=== PATIENT | male | born 1970 | race Caucasian/White ===

== ENCOUNTER 2020-05-15 06:58 | Day surgery (SDC) | payer MEDICARE, MEDICAID ==
[2020-05-15] MEDS ORDERED: Glycopyrrolate 0.2 MG/ML 5 ML MDV IV ONE (06:59)
[2020-05-15] MEDS ORDERED: Succinylcholine 200 MG/10 ML MDV IV ONE (06:59)
[2020-05-15] MEDS ORDERED: Citric Acid/Sodium Citrate Solution 30 ML Cup PO ONE (06:59)
[2020-05-15] MEDS ORDERED: Midazolam 1 MG/ML 2 ML SDV IV ONE (06:59)
[2020-05-15] MEDS ORDERED: Propofol 200 MG/20 ML SDV IV ONE (06:59)
[2020-05-15] MEDS ORDERED: Albuterol 8 GM Inhaler INH ONE (06:59)
[2020-05-15] MEDS ORDERED: Dexmedetomidine 200 MCG/2 ML SDV IV ONE (06:59)
[2020-05-15] MEDS ORDERED: Acetaminophen 1,000 MG/100 ML Infusion Bottle Premix IV ONE (06:59)
[2020-05-15] MEDS ORDERED: Ketamine 500 mg/10 ML MDV IV ONE (06:59)
[2020-05-15] MEDS ORDERED: Lactated Ringers 1,000 ML IV ONE (06:59)
[2020-05-15] MEDS ORDERED: fentaNYL 100 MCG/2 ML SDV IV ONE (06:59)
[2020-05-15] MEDS ORDERED: Rocuronium 100 MG/10 ML MDV IV ONE (06:59)
[2020-05-15] MEDS ORDERED: Neostigmine Methylsulfate 10 MG/10 ML MDV IVPUSH ONE (06:59)
[2020-05-15] MEDS ORDERED: Lactated Ringers 1,000 ML IV SCH (07:00)
[2020-05-15] MEDS ORDERED: Sodium Chloride 0.9% 10 ML Syringe FLUSH PRN (07:00)
[2020-05-15] MEDS ORDERED: Bupivacaine 0.25% 30 ML SDV INJECT ONE (09:37)
--- NOTE | 2020-05-15 10:43 | PCM.OPNOTE ---
- General Post-Op/Procedure Note Date of Surgery/Procedure: 05/15/20 Operative Procedure(s): Lap Ventral Hernia repair with Mesh Findings: 3 hernia defects Pre Op Diagnosis: Recurrent Ventral Hernia Post-Op Diagnosis: Same Anesthesia Technique: General ET Tube Primary Surgeon: Marino Navarrete Anesthesia Provider: Franchesca Abrams Solution Analyst: Yan Mayfield in mLs: 5 Complications: None Condition: Good
[2020-05-15] MEDS ORDERED: Acetaminophen/HYDROcodone 325-5 MG Tab PO PRN (10:46)
[2020-05-15] MEDS ORDERED: Morphine 2 MG/ML Syringe IVPUSH PRN (10:46)
--- NOTE | 2020-05-15 13:02 | OR ---
DATE OF OPERATION: 05/15/2020 SURGEON: Marino Navarrete MD PREOPERATIVE DIAGNOSIS: Recurrent ventral hernia. POSTOPERATIVE DIAGNOSIS: Recurrent ventral hernia. PROCEDURE: Laparoscopic ventral hernia repair with mesh. RADIATION THERAPIST: Yan Mayfield MD; Dr. Mayfield was necessary for assistance for the procedure and to reduce surgical time. ANESTHESIA: General. DESCRIPTION OF PROCEDURE: The patient was brought to the operating room, where general endotracheal anesthesia was administered. The abdomen was clipped, prepped with ChloraPrep, and draped sterilely. IV antibiotics had been administered. Time-out was performed. The abdomen was prepped with ChloraPrep and draped sterilely. A 1.5 cm left upper quadrant incision was made after infiltrating the skin with 0.25% Marcaine. Access to the peritoneal cavity was done using the Visiport. Pneumoperitoneum was obtained. 5 mm ports were placed in the right upper, right lower, and left lower quadrants. General exploration revealed the omentum to be incarcerated in the periumbilical region. This was reduced with blunt dissection. Old suture was visible. I did not see any obvious mesh, however. There were 3 hernia defects present, one at the umbilicus, one to the left of the umbilicus, and the largest one which was supraumbilical. These defects measured 4 cm in length and approximately 3 cm in width. A 4 inch x 6 inch piece of Com[employer]ix mesh was chosen, which would give good coverage, at least 1 1/2 inches beyond any of the defects. This was introduced through the left upper quadrant port, after each quadrant had suture placed on it. The sutures were then brought through the abdominal wall with the port closure device. Mesh was then secured to the abdominal wall using PermaSorb tacks. An outer row followed by an inner row were used. Photographs were taken. The left upper quadrant port site was closed with a port closure device using 2-0 Vicryl. The ports were removed under direct vision and remained hemostatic. The last port was removed after pneumoperitoneum was removed. The skin was closed with 4-0 Vicryl subcuticular sutures. Benzoin and Steri-Strips were placed and Band-Aids applied. The patient tolerated the procedure well. Estimated blood loss 5 mL. He returned to Postanesthesia in stable condition. /[id number]/[id number]
== END 2020-05-15 13:02 | disposition home or self-care (01) ==
LOC: FB.SDS 06:58
PROVIDERS: ATTEND Surgery
DX: K43.2 Incisional hernia without obstruction or gangrene (principal); J45.909 Unspecified asthma, uncomplicated; I10 Essential (primary) hypertension; E66.01 Morbid (severe) obesity due to excess calories; F17.210 Nicotine dependence, cigarettes, uncomplicated; Z11.59 Encounter for screening for other viral diseases; Z88.0 Allergy status to penicillin; Z88.6 Allergy status to analgesic agent; Z68.41 Body mass index [BMI] 40.0-44.9, adult; Z79.899 Other long term (current) drug therapy; Z88.5 Allergy status to narcotic agent; Z88.8 Allergy status to other drugs, medicaments and biological substances
CPT/HCPCS: 00832; 49652; 82962; 94150; A9270; C1713; C1781; J0131; J0330; J0690; J2250; J2704; J2710; J3010; J3490; J7050; J7120; U0002